=== PATIENT | female | born 1970 | race Caucasian/White ===

== ENCOUNTER → 2018-03-17 | Outpatient (CLI) | payer BC ==
[2018-03-17 13:03] LABS: WBC 7.5 k/uL (3.8-10.6)
[2018-03-17 13:04] LABS: Basophils % (A) 1 %; Eosinophils # (A) 0.3 k/uL (0-0.7); Eosinophils % (A) 4 %; HCT 38.3 % (34.0-46.0); HGB 12.5 gm/dL (11.4-16.0); Lymphocytes # (A) 2.1 k/uL (1.0-4.8); Lymphocytes % (A) 28 %; MCH 28.4 pg (25.0-35.0); MCHC 32.7 g/dL (31.0-37.0); MCV 86.7 fL (80.0-100.0); Mean Platelet Volume 6.3; Monocytes # (A) 0.4 k/uL (0-1.0); Monocytes % (A) 5 %; Neutrophils # (A) 4.5 k/uL (1.3-7.7); Neutrophils % (A) 61 %; Platelet Count 284 k/uL (150-450); RBC 4.42 m/uL (3.80-5.40); RDW 12.2 % (11.5-15.5)
[2018-03-17 13:12] LABS: Anion Gap 8 mmol/L; Blood Urea Nitrogen 17 mg/dL (7-17); Carbon Dioxide 27 mmol/L (22-30); Chloride 105 mmol/L (98-107); Glucose 90 mg/dL (74-99); Potassium 4.3 mmol/L (3.5-5.1); Sodium 140 mmol/L (137-145)
== END ==
LOC: LABPAT 12:32
PROVIDERS: ATTEND Obstetrics & Gynecology
DX: Z01.812 Encounter for preprocedural laboratory examination (principal)
CPT/HCPCS: 80048; 85025

== ENCOUNTER 2018-03-28 05:36 | Inpatient (IN) | payer BC ==
[2018-03-16 11:48] VITALS: BMI 26.9
--- NOTE | 2018-03-27 20:41 | P.HPOB ---
History of Present Illness H&P Date: 03/27/18 Chief Complaint: Menorrhagia with irregular cycle, large uterine fibroids This is a 47-year-old female 2 para 2 who presents for total abdominal hysterectomy with bilateral salpingectomy and possible bilateral oophorectomy for menorrhagia with irregular cycle and large uterine fibroids. She would only like her ovaries removed if they appear cancerous or severe endometriosis is noted. The patient complains of abnormally long and heavy menses occurring anywhere from 3-4 weeks apart and lasting 5-7 days. Her last 2 cycles each lasted almost 14 days with some clots. She also has had several months where she has missed up to 3 periods in a rope. Her pelvic ultrasound showed a uterus enlarged up to 13.6 cm x 8.4 x 7.4 cm. Endometrial stripe thickness was 4 mm. There was a large fundal fibroid measuring 6.1 x 5.8 cm another fibroid on the right side measuring 2.8 x 2.3 cm. Both ovaries appeared normal size and small simple cysts were noted on both ovaries. Based on the size of her uterus she is not a candidate for endometrial ablation. She would like definitive surgical treatment to control her heavy bleeding. Obstetrical history: . History of 2 vaginal deliveries. Gynecologic history: Onset of menses was at age 15. Menses are as described above. She has no history of sexual transmitted diseases. Her has had a vasectomy. Social history: She is . She works as a geographic information systems engineer. Review of Systems Constitutional: Reports night sweats, Denies chills, Denies fever Eyes: denies blurred vision, denies pain Ears, nose, mouth and throat: Denies headache, Denies sore throat Cardiovascular: Denies chest pain, Denies shortness of breath Respiratory: Denies cough Genitourinary: Reports menorrhagia Menstruation: Reports menses variable, Reports period heavy Musculoskeletal: Reports low back pain Integumentary: Denies pruritus, Denies rash Neurological: Denies numbness, Denies weakness Psychiatric: Denies anxiety, Denies depression Endocrine: Denies fatigue, Denies weight change Past Medical History Past Medical History: Hypertension History of Any Multi-Drug Resistant Organisms: None Reported Past Surgical History: Appendectomy Past Anesthesia/Blood Transfusion Reactions: No Reported Reaction Past Psychological History: No Psychological Hx Reported Smoking Status: Former smoker Past Alcohol Use History: Occasional Additional Past Alcohol Use History / Comment(s): Quit smoking , smoked for 2 yrs. Past Drug Use History: None Reported - Past Family History Mother Family Medical History: Diabetes Mellitus Medications and Allergies Home Medications Medication Instructions Recorded Confirmed Type amLODIPine BESYLATE [Norvasc] 5 mg PO QAM 03/16/18 03/16/18 History Allergies Allergy/AdvReac Type Severity Reaction Status Date / Time No Known Allergies Allergy Verified 03/16/18 11:48 Exam Osteopathic Statement: *. No significant issues noted on an osteopathic structural exam other than those noted in the History and Physical/Consult. HEENT: Within normal limits Heart: Regular rate and rhythm Lungs: Clear to auscultation bilaterally Abdomen: Soft, nontender Pelvic exam: Uterus is slightly enlarged, with approximately grade 2 uterine prolapse, in a mid position. No adnexal masses or tenderness are palpated. Extremities: Negative Homans Assessment and Plan (1) Menorrhagia with irregular cycle Status: Acute Code(s): N92.1 - EXCESSIVE AND FREQUENT MENSTRUATION WITH IRREGULAR CYCLE SNOMED Code(s): 876013173 (2) Uterine fibroid Status: Acute Code(s): D25.9 - LEIOMYOMA OF UTERUS, UNSPECIFIED SNOMED Code( s): 37320797 Plan: Proceed with total abdominal hysterectomy with bilateral salpingectomy and possible bilateral oophorectomy. I have discussed the risks, benefits, and alternative therapies for the above- mentioned procedure and for both sedation/anesthesia as well as necessary blood products administration, if indicated, as they pertain to this patient. The patient has indicated her understanding and acceptance of the risks and procedures discussed.
[~2018-03-28 05:36] MED LIST: DEXAMETHASONE SOD PHOSPHATE 10 MG/ML 1 ML VIAL IV ONE; MIDAZOLAM (PF) 2 MG/2 ML VIAL IV PRN; MORPHINE SULFATE 2 MG/ML SYRINGE IV PRN; ONDANSETRON 4 MG/2 ML VIAL IVP ONE; ceFAZolin IN SWFI 2 GM/20 ML SYRINGE IVP ONE
[2018-03-28] MEDS ORDERED: LACTATED RINGERS 1,000 ML IV ONE (06:13)
[2018-03-28] MEDS ORDERED: LIDOCAINE 1% 20 ML VIAL (10MG/ML) FOR IV START INTRADERMA ONE (06:14)
[2018-03-28] MEDS ORDERED: MIDAZOLAM 2 MG/2 ML VIAL IVP ONE (06:48)
[2018-03-28] MEDS ORDERED: MORPHINE SULFATE 2 MG/ML SYRINGE IVP PRN (07:08)
[2018-03-28] MEDS ORDERED: diphenhydrAMINE 50 MG/ML 1 ML VIAL IVP PRN (07:08)
[2018-03-28] MEDS ORDERED: NALOXONE 0.4 MG/ML 1 ML VIAL IV PRN (07:08)
[2018-03-28] MEDS ORDERED: KETOROLAC 30 MG/ML 1 ML VIAL ONE (07:19)
[2018-03-28] MEDS ORDERED: PROPOFOL 10 MG/ML 20 ML VIAL IV ONE (07:19)
[2018-03-28] MEDS ORDERED: NEOSTIGMINE 1 MG/ML 10 ML VIAL ONE (07:19)
[2018-03-28] MEDS ORDERED: LIDOCAINE 1% INJ 10MG/ML (20 ML MDV) ONE (07:19)
[2018-03-28] MEDS ORDERED: MIDAZOLAM 2 MG/2 ML VIAL ONE (07:19)
[2018-03-28] MEDS ORDERED: GLYCOPYRROLATE 0.2 MG/ML 2 ML VIAL ONE (07:19)
[2018-03-28] MEDS ORDERED: MORPHINE SULFATE (PF) 0.3 MG/0.3 ML SYR ONE (07:19)
[2018-03-28] MEDS ORDERED: SUCCINYLCHOLINE CHLORIDE 100 MG/5 ML SYR IV ONE (07:19)
[2018-03-28] MEDS ORDERED: ROCURONIUM BROMIDE 10 MG/ML 10 ML VIAL IV ONE (07:19)
[2018-03-28] MEDS ORDERED: fentaNYL (PF) 50 MCG/ML 2 ML AMP ONE (07:19)
[2018-03-28] MEDS: LACTATED RINGERS 1,000 ML IV SCH ×2 (08:14→15:04)
--- NOTE | 2018-03-28 08:47 | P.OP ---
Date of Procedure: 03/28/18 Preoperative Diagnosis: Menorrhagia with irregular cycle Large uterine fibroids Postoperative Diagnosis: Same Procedure(s) Performed: Total abdominal hysterectomy with bilateral salpingectomy Anesthesia: GETA, spinal (Duramorph) Surgeon: Myla Bass Financial Assistant #1: Mari Cornejo Estimated Blood Loss (ml): 150 Pathology: other (Uterus with cervix, bilateral fallopian tubes) Condition: stable Disposition: floor Indications for Procedure: This is a 47-year-old female 2 para 2 who presents for total abdominal hysterectomy with bilateral salpingectomy and possible bilateral oophorectomy for menorrhagia with irregular cycle and large uterine fibroids. She would only like her ovaries removed if they appear cancerous or severe endometriosis is noted. The patient complains of abnormally long and heavy menses occurring anywhere from 3-4 weeks apart and lasting 5-7 days. Her last 2 cycles each lasted almost 14 days with some clots. She also has had several months where she has missed up to 3 periods in a rope. Her pelvic ultrasound showed a uterus enlarged up to 13.6 cm x 8.4 x 7.4 cm. Endometrial stripe thickness was 4 mm. There was a large fundal fibroid measuring 6.1 x 5.8 cm another fibroid on the right side measuring 2.8 x 2.3 cm. Both ovaries appeared normal size and small simple cysts were noted on both ovaries. Based on the size of her uterus she is not a candidate for endometrial ablation. She would like definitive surgical treatment to control her heavy bleeding. Operative Findings: Uterus is enlarged with multiple fibroids, the largest one on the fundus that is approximately 7 cm. Both tubes and ovaries appeared normal. The left ovary did have a small simple cysts noted. Description of Procedure: The patient is taken to the operating room where she is placed in the dorsal supine position. She is prepped and draped in the normal sterile fashion including Mckeon catheter insertion and vaginal prep. A Pfannenstiel skin incision is made with a scalpel. A second knife was used to carry the incision down to the underlying layer of fascia. The fascia was nicked in the midline with a scalpel and then extended laterally bilaterally with Fitch scissors. The superior aspect of the fascial incision was grasped with Hair clamps, elevated off the underlying rectus muscle in the midline and then cut with Fitch scissors. The inferior aspect of the fascial incision was grasped with Hair clamps, elevated off the underlying rectus muscle in the midline and then cut with Fitch scissors. Next the peritoneum was identified and entered sharply with Fitch scissors. It is extended superiorly and in fairly with Metzenbaum scissors with good visualization of underlying structures. Next the [place] retractor is placed in the bladder blade was inserted. The bowels were packed with a 3 yard laparotomy sponge. Next the uterus is brought up incision and the corneal regions are grasped with Court clamps on both sides. Next the fallopian tube on the left side is brought up to the incision and the mesosalpinx is clamped with a Shakila clamp. This is cut with Fitch scissors and then sutured with 0 Vicryl suture in Shakila transfixion stitch. The remaining mesosalpinx is also clamped with a Shakila clamp, cut with Fitch scissors, and sutured with 0 Vicryl suture in Shakila transfixion stitches. Next the uterine ovarian ligament is clamped with a Shakila clamp, cut with Fitch scissors, and then sutured with 0 Vicryl suture in Shakila transfixion stitch. The same procedure is carried out on the right side. The uterine arteries are then clamped with Shakila clamp on either side. The vesicouterine peritoneum was sharply dissected away from the bladder with Metzenbaum scissors and pushed inferiorly. The uterine arteries are then cut with Fitch scissors, and sutured with 0 Vicryl suture in Shakila transfixion stitches. Next the cardinal ligaments were clamped on either side with Shakila clamp, cut with Fitch scissors , and sutured with 0 Vicryl suture in Shakila transfixion stitches. The uterosacral ligaments are clamped on either side with Shakila clamps, cut with Fitch scissors, and sutured with 0 Vicryl suture in Shakila transfixion stitches on either side. The edges of the vaginal cuff were clamped on either side with a Shakila clamp, cut with Fitch scissors, and sutured with 0 Vicryl suture in Shakila transfixion stitches and held on either side. The vaginal mucosa was then cut just below the level of the cervix and the specimen is removed from the field. The edges of the vaginal cuff were held with Hair clamps. Next the previously held corners of each side of the vaginal cuff were then whipstitched along the connective tissue on either side and brought through the corner of the cuff and tied. Next the vaginal cuff was sutured with 0 Vicryl suture in a running locked fashion. Hemostasis was noted. Copious irrigation is carried out with warm saline. Excellent hemostasis is noted. All sponges are removed from the abdomen. The peritoneum is then closed with 0 Vicryl suture in a running fashion. The muscle was then reapproximated with 0 Vicryl suture in interrupted fashion. Several interrupted stitches are placed on the muscle layer for hemostasis. The fascia layer is then closed with 0 PDS suture in a running fashion with the knots buried on either side and in the midline. Next the subcutaneous tissues closed with 2-0 Vicryl suture in a running fashion. The skin is closed with liz. All sponge and needle counts are correct and the patient is taken to recovery room in stable condition.
[2018-03-28] MEDS: HYDROmorphone 0.5 MG/0.5 ML SYRINGE IVP PRN ×2 (09:34→10:08)
[2018-03-28] MEDS ORDERED: SIMETHICONE 80 MG CHEWABLE PO PRN (10:50)
[2018-03-28] MEDS ORDERED: ONDANSETRON 4 MG/2 ML VIAL IVP PRN (10:50)
[2018-03-28] MEDS ORDERED: METOCLOPRAMIDE 5 MG/ML 2 ML VIAL IVP PRN (10:50)
[2018-03-28] MEDS ORDERED: diphenhydrAMINE 25 MG CAP PO PRN (10:50)
[2018-03-28] MEDS ORDERED: HYDROcodone/APAP 7.5-325MG 1 EACH TAB PO PRN (10:50)
[2018-03-28] MEDS ORDERED: HYDROcodone/APAP 5-325MG 1 EACH TAB PO PRN (10:50)
[2018-03-28] MEDS ORDERED: ZOLPIDEM 5 MG TAB PO PRN (10:50)
[2018-03-28] MEDS: SENNOSIDES-DOCUSATE SODIUM 1 EACH TAB PO SCH ×2 (11:41→21:54)
[2018-03-28] MEDS: amLODIPine 5 MG TAB PO SCH (11:41)
[2018-03-28] MEDS ORDERED: LACTATED RINGERS 500 ML IV SCH (13:00)
[2018-03-28 14:08] LABS: Basophils % (A) 0 %; Eosinophils # (A) 0.1 k/uL (0-0.7); Eosinophils % (A) 1 %; HCT 33.9 % (34.0-46.0); HGB 11.1 gm/dL (11.4-16.0); Lymphocytes # (A) 0.7 k/uL (1.0-4.8); Lymphocytes % (A) 5 %; MCH 29.5 pg (25.0-35.0); MCHC 32.7 g/dL (31.0-37.0); MCV 90.3 fL (80.0-100.0); Monocytes # (A) 0.3 k/uL (0-1.0); Monocytes % (A) 2 %; Neutrophils # (A) 13.1 k/uL (1.3-7.7); Neutrophils % (A) 92 %; Platelet Count 186 k/uL (150-450); RBC 3.75 m/uL (3.80-5.40); RDW 12.9 % (11.5-15.5); WBC 14.2 k/uL (3.8-10.6)
[2018-03-28] MEDS: KETOROLAC 30 MG/ML 1 ML VIAL IVP PRN ×2 (17:02→23:01)
--- NOTE | 2018-03-28 18:19 | P.PN ---
Progress Note - Text Progress Note Date: 03/28/18 I was called in regard to patient's blood pressures. Patient's blood pressures earlier today were 84/53 and 98/64. Patient is status post total abdominal hysterectomy. Patient's pulse was normal. She's had adequate urine output. Patient is sleeping apparently without complaints. Patient did have a Duramorph spinal the time of her surgery. I checked a CBC which showed a hemoglobin of 11.1. I did give the patient a bolus of 500 mL of lactated Ringer 's and this did elevate her blood pressure 105/64. Patient continues to feel well at this time it appears her low blood pressures most likely secondary to the Duramorph. Plan will be to continue routine postoperative care and patient does have a CBC ordered for tomorrow morning.
[2018-03-29] MEDS: KETOROLAC 30 MG/ML 1 ML VIAL IVP PRN (06:24)
[2018-03-29 07:35] LABS: Basophils % (A) 0 %; Eosinophils % (A) 0 %; HCT 28.4 % (34.0-46.0); Lymphocytes # (A) 1.7 k/uL (1.0-4.8); Lymphocytes % (A) 20 %; MCHC 32.9 g/dL (31.0-37.0); MCV 88.1 fL (80.0-100.0); Mean Platelet Volume 6.9; Monocytes # (A) 0.6 k/uL (0-1.0); Monocytes % (A) 7 %; Neutrophils # (A) 6.3 k/uL (1.3-7.7); Neutrophils % (A) 72 %; Platelet Count 196 k/uL (150-450); RBC 3.22 m/uL (3.80-5.40); RDW 12.8 % (11.5-15.5); WBC 8.7 k/uL (3.8-10.6)
[2018-03-29 07:37] LABS: HGB 9.3 gm/dL (11.4-16.0)
[2018-03-29] MEDS: SENNOSIDES-DOCUSATE SODIUM 1 EACH TAB PO SCH ×2 (07:50→19:58)
--- NOTE | 2018-03-29 08:40 | P.PN ---
Subjective Progress Note Date: 03/29/18 Principal diagnosis: Status post total abdominal hysterectomy with bilateral salpingectomy postoperative day #1 Patient is doing well this morning. She is ambulating without dizziness or nausea. She has urinated this morning. She is passing flatus this morning. Pain is fairly well controlled. She denies any significant vaginal bleeding. Objective - Vital Signs Vital signs: Vital Signs Temp 98.0 F 03/29/18 02:00 Pulse 76 03/29/18 02:00 Resp 18 03/29/18 06:00 BP 124/70 03/29/18 02:00 Pulse Ox 98 03/29/18 02:00 Intake & Output 03/28/18 03/29/18 03/29/18 18:59 06:59 18:59 Intake Total 1100 Output Total 850 300 Balance 250 -300 Weight 73.482 kg Intake: IV 1100 Output: Urine 700 300 Estimated Blood Loss 150 Other: Voiding Method Toilet Indwelling Catheter - Constitutional General appearance: Present: no acute distress - Gastrointestinal Gastrointestinal Comment(s): Incision is clean dry and intact with liz in place. General gastrointestinal: Present: normal bowel sounds - Musculoskeletal Musculoskeletal Comment(s): Negative Homans - Labs CBC & Chem 7: 03/29/18 05:41 Labs: Abnormal Lab Results - Last 24 Hours (Table) 03/28/18 03/29/18 Range/Units 13:47 05:41 WBC 14.2 H (3.8-10.6) k/uL RBC 3.75 L 3.22 L (3.80-5.40) m/uL Hgb 11.1 L 9.3 L D (11.4-16.0) gm/dL Hct 33.9 L 28.4 L (34.0-46.0) % Neutrophils # 13.1 H (1.3-7.7) k/uL Lymphocytes # 0.7 L (1.0-4.8) k/uL Assessment and Plan Assessment: Status post total abdominal hysterectomy with bilateral salpingectomy postoperative day #1 (1) Menorrhagia with irregular cycle Current Visit: No Status: Acute Code(s): N92.1 - EXCESSIVE AND FREQUENT MENSTRUATION WITH IRREGULAR CYCLE SNOMED Code(s): 282567181 (2) Uterine fibroid Current Visit: No Status: Acute Code(s): D25.9 - LEIOMYOMA OF UTERUS, UNSPECIFIED SNOMED Code(s): 66368453 Plan: Will switch to oral pain medications today. Will discontinue IV. Encouraged ambulation. Advance diet as tolerated.
[2018-03-29] MEDS: amLODIPine 5 MG TAB PO SCH (08:42)
--- NOTE | 2018-03-29 11:44 | P.PN ---
Progress Note - Text Anesthesia POD 1. Patient is status post Total abdominal hysterectomy with bilateral salpingectomy under general endotracheal anesthesia with intra-thecal preservative free morphine 300 g. Moderate pruritus, excellent post-op analgesia, and no headache or other complications.
[2018-03-29] MEDS: IBUPROFEN 600 MG TAB PO PRN ×2 (12:01→18:25)
[2018-03-30] MEDS: IBUPROFEN 600 MG TAB PO PRN ×2 (00:48→07:55)
[2018-03-30 01:10] VITALS: RESP 18; TEMP 97.9
[2018-03-30] MEDS: amLODIPine 5 MG TAB PO SCH (08:01)
--- NOTE | 2018-03-30 08:21 | P.DS ---
Providers Date of admission: 03/28/18 05:36 Expected date of discharge: 03/30/18 Attending physician: Myla Bass Primary care physician: Vishnu Addison - Discharge Diagnosis(es) (1) Menorrhagia with irregular cycle Current Visit: No Status: Acute (2) Uterine fibroid Current Visit: No Status: Acute Hospital Course: This is a 47-year-old female who underwent a total abdominal hysterectomy with bilateral salpingectomy on 03/28/2018. Postoperatively she has done well. She is passing flatus and bowel movement. Urinating without difficulty. No vaginal bleeding is noted. Pain is fairly well controlled with ibuprofen and occasional [place]. Vital signs are stable. Abdomen is soft with positive bowel sounds 4. Incision is clean dry and intact with liz in place. There is minimal ecchymosis noted along the right side. Extremities show negative Homans. Minda-pad is dry. Impression is status post total abdominal hysterectomy with bilateral salpingectomy postoperative day #2. Plan is to discharge home today. [place] will be removed and Steri-Strips placed prior to discharge. Routine postoperative instructions are given. She is advised follow -up in the office in approximately 10 days. She is advised to call the office if she has any further questions or concerns prior to her appointment time. She will be given a prescription for ibuprofen 600 mg every 6 hours as needed and [place] for 3 days. She has signed the opioids start talking form and denies any other narcotic use. Procedures: Total abdominal hysterectomy with bilateral salpingectomy on 03/28/2018 Patient Condition at Discharge: Stable Plan - Discharge Summary Discharge Rx Participant: No New Discharge Prescriptions: New HYDROcodone/APAP 5-325MG [[place] 5-325] 1 each PO Q4HR PRN #18 tab PRN Reason: Moderate Pain Ibuprofen [Motrin] 600 mg PO Q6HR PRN #60 tab PRN Reason: Mild Discomfort Continue amLODIPine BESYLATE [Norvasc] 5 mg PO QAM Discharge Medication List amLODIPine BESYLATE [Norvasc] 5 mg PO QAM 03/16/18 [History] HYDROcodone/APAP 5-325MG [[place] 5-325] 1 each PO Q4HR PRN #18 tab 03/30/18 [Rx] Ibuprofen [Motrin] 600 mg PO Q6HR PRN #60 tab 03/30/18 [Rx] Follow up Appointment(s)/Referral(s): Myla Bass DO [Doctor of Osteopathic Medicine] - 10 Days Activity/Diet/Wound Care/Special Instructions: Diet as tolerated. Activity as tolerated. No lifting. May shower, but no tub baths for 1 week. No intercourse for 6 weeks. Discharge Disposition: HOME SELF-CARE
[2018-03-30 08:26] VITALS: BP 118/80; PULSE 80
[2018-03-30] MEDS: SENNOSIDES-DOCUSATE SODIUM 1 EACH TAB PO SCH (09:26)
== END 2018-03-30 09:29 | disposition home or self-care (01) | DRG 743 ==
LOC: 2ORMAIN 05:36 → EDSTATUS 07:30 → 6PED 10:38
PROVIDERS: ADMIT Obstetrics & Gynecology; ATTEND Obstetrics & Gynecology
PROC: 0UT70ZZ Resection of Bilateral Fallopian Tubes, Open Approach (ICD-10-PCS; 2018-03-28)
PROC: 0UT90ZZ Resection of Uterus, Open Approach (ICD-10-PCS; principal; 2018-03-28 07:30)
DX: D25.9 Leiomyoma of uterus, unspecified (principal); I10 Essential (primary) hypertension; N92.0 Excessive and frequent menstruation with regular cycle; L29.9 Pruritus, unspecified; N92.6 Irregular menstruation, unspecified; N83.292 Other ovarian cyst, left side; N83.291 Other ovarian cyst, right side; Z87.891 Personal history of nicotine dependence; Z90.49 Acquired absence of other specified parts of digestive tract; Z83.3 Family history of diabetes mellitus
CPT/HCPCS: 81025; 85025; 86850; 86900; 86901; 88307

== ENCOUNTER → 2020-02-08 | Outpatient (CLI) | payer BC ==
--- NOTE | 2020-02-11 13:21 | MM ---
Reason for exam: screening (asymptomatic). Last mammogram was performed 4 years and 1 month ago. Physical Findings: A clinical breast exam by your physician is recommended on an annual basis and results should be correlated with mammographic findings. MG Screening Mammo w CAD Bilateral CC and MLO view(s) were taken. Prior study comparison: January 01, 2016, bilateral MG screening mammo w CAD. August 30, 2013, bilateral MG diagnostic mammo w CAD [facility]. The breast tissue is heterogeneously dense. This may lower the sensitivity of mammography. No significant changes when compared with prior studies. ASSESSMENT: Benign, BI-RAD 2 RECOMMENDATION: Routine screening mammogram of both breasts in 1 year.
== END | disposition home or self-care (01) ==
LOC: RADMAMWWP 13:33
PROVIDERS: ATTEND Family Medicine
DX: Z12.31 Encounter for screening mammogram for malignant neoplasm of breast (principal)
CPT/HCPCS: 77067

== ENCOUNTER → 2021-12-03 | Outpatient (CLI) | payer BC ==
--- NOTE | 2021-12-03 11:58 | BD ---
EXAMINATION TYPE: Axial Bone Density DATE OF EXAM: 12/03/2021 COMPARISON: NONE CLINICAL HISTORY: 51 year old Female. ICD-10 CODE: N95.1 POST MENOPAUSAL Height: 65.5 Weight: 166.6 FRAX RISK QUESTIONS: Alcohol (3 or more units per day): no Family History (Parent hip fracture): no Glucocorticoids (More than 3mos): no (Ex: prednisone, prednisolone, methylprednisolone, dexamethasone, and hydrocortisone). History of Fracture in Adulthood: no Secondary Osteoporosis: 1. Type 1 Diabetes: no 2. Hyperthyroidism: no 3. Menopause before 45: no 4. Malnutrition: no 5. Chronic liver disease: no Rheumatoid Arthritis: no Current Tobacco Use: no RISK FACTORS HISTORY OF: Surgery to Spine/Hip(right/left)/Wrist (right/left): no Family History of Osteoporosis: no Active: yes Diet low in dairy products/other sources of calcium: yes Postmenopausal woman: yes Lost more than 2 inches in height since high school: no MEDICATIONS: Additional History: EXAM MEASUREMENTS: Bone mineral densitometry was performed using the [employer] System. Bone mineral density as measured about the Lumbar spine is: ----- L1-L4(G/cm2): 1.207 T Score Values are as follows: ----- L1: 0.0 ----- L2: 0.1 ----- L3: 0.5 ----- L4: 0.1 ----- L1-L4: 0.2 Bone mineral density : baseline Bone mineral density about the R hip (g/cm2): 0.901 Bone mineral density about the L hip (g/cm2): 0.937 T Score values are as follows: -----R Neck: -1.0 -----L Neck: -0.7 -----R Total: -0.1 -----L Total: 0.1 Bone mineral density : baseline FRAX%s: The graph provided illustrates a 4.4% chance for a major osteoporotic fx and a 0.2% chance fo r the hips probability for fx in 10 years time. IMPRESSION: Normal (Values between +1 and -1 indicate normal bone mass). Consider repeating this study in 5 year s or sooner if there is some new clinical indication. NOTE: T-SCORE=SD OF THE YOUNG ADULT MEAN.
--- NOTE | 2021-12-03 15:10 | MM ---
Reason for Exam: Screening (asymptomatic). Last mammogram was performed 1 year(s) and 10 month(s) ago. Patient History: Menarche at age 12. First Full-Term at age 30. Late child-bearing (after 30). Hysterectomy at age 48. Risk Values: Tiana 5 year model risk: 1.4%. NCI Lifetime model risk: 12.0%. Prior Study Comparison: 08/30/2013 Bilateral Diagnostic Mammogram, [facility]. 01/01/2016 Bilateral Screening Mammogram, [facility] 02/08/2020 Bilateral Screening Mammogram, [facility]. Tissue Density: There are scattered fibroglandular densities. Findings: Analyzed By CAD. A focal 6 mm asymmetry in the anterior depth medial aspect left breast on CC view appears more prominent from prior studies. Overall Assessment: Incomplete: need additional imaging evaluation, BI-RAD 0 Management: Special View Mammogram of the left breast. Return for additional views left breast. Electronically signed and approved by: Umer Abrams M.D.
== END | disposition home or self-care (01) ==
LOC: RADMAMWWP 07:59
PROVIDERS: ATTEND Obstetrics & Gynecology
DX: Z12.31 Encounter for screening mammogram for malignant neoplasm of breast (principal); M85.851 Other specified disorders of bone density and structure, right thigh; Z78.0 Asymptomatic menopausal state
CPT/HCPCS: 77067; 77080

== ENCOUNTER → 2021-12-08 | Outpatient (CLI) | payer BC ==
--- NOTE | 2021-12-08 09:30 | USB ---
Patient History: Menarche at age 12. First Full-Term at age 30. Late child-bearing (after 30). Hysterectomy at age 48. Risk Values: Tiana 5 year model risk: 1.4%. NCI Lifetime model risk: 12.0%. Prior Study Comparison: 01/01/2016 Bilateral Screening Mammogram, [facility]. 02/08/2020 Bilateral Screening Mammogram, [facility]. 12/03/2021 Bilateral MG screening mammo w CAD, [facility]. Findings: The upper inner quadrant of the left breast, the axilla of the left breast and the retroareolar of the left breast were scanned. . Left breast 11:00 1 cm from nipple is a suspected complicated cyst with some posterior acoustic enhancement and thin septation. No suspicious masses or cystic structures identified. Overall Assessment: Benign, BI-RAD 2 Management: Screening Mammogram of both breasts in 1 year. A clinical breast exam by your physician is recommended on an annual basis and results should be correlated with mammographic findings. Electronically signed and approved by: Gabriele Carrera DO
--- NOTE | 2021-12-09 09:02 | MM ---
Reason for Exam: Additional evaluation requested from prior study. Last screening mammogram was performed less than 1 month ago. Patient History: Menarche at age 12. First Full-Term at age 30. Late child-bearing (after 30). Hysterectomy at age 48. Risk Values: Tiana 5 year model risk: 1.4%. NCI Lifetime model risk: 12.0%. Prior Study Comparison: 01/01/2016 Bilateral Screening Mammogram, [facility]. 02/08/2020 Bilateral Screening Mammogram, [facility]. 12/03/2021 Bilateral MG screening mammo w CAD, [facility]. Tissue Density: Left: There are scattered fibroglandular densities. Findings: Analyzed By CAD. Area of concern in the left breast 1:00 1 cm from nipple persists. Ultrasound recommended. Overall Assessment: Incomplete: need additional imaging evaluation, BI-RAD 0 Management: Diagnostic Breast Ultrasound of the left breast. A clinical breast exam by your physician is recommended on an annual basis and results should be correlated with mammographic findings. This exam should not preclude additional follow-up of suspicious palpable abnormalities. Results were given to the patient verbally at the time of exam. Electronically signed and approved by: Gabriele Carrera DO
== END | disposition home or self-care (01) ==
LOC: RADMAMWWP 08:15
PROVIDERS: ATTEND Obstetrics & Gynecology
DX: R92.8 Other abnormal and inconclusive findings on diagnostic imaging of breast (principal); N60.02 Solitary cyst of left breast
CPT/HCPCS: 77061; 77065

== ENCOUNTER → 2022-08-02 | Outpatient (CLI) | payer BC ==
--- NOTE | 2022-08-02 16:59 | MR ---
EXAMINATION TYPE: MR lumbar spine wo con DATE OF EXAM: 08/02/2022 3:28 PM COMPARISON: None. CLINICAL INDICATION:Female, 52 years old with history of R10.12; Low back pain, sacrococcygeal disord ers TECHNIQUE: Multi planar, multi sequence imaging was performed utilizing: T1-weighted, T2-weighted, a nd turbo inversion recovery imaging of the lumbar spine. IV Contrast: None. FINDINGS: Alignment: The lumbar vertebral bodies have preserved heights and alignment. Cord: The conus medullaris and the distal spinal cord appear unremarkable with regards to their signa l intensity and morphology. There is a transitional vertebrae at L5. Bones/Discs: High T1/high T2 signal L1 vertebral body hemangioma. Reactive bony edema on inversion re covery signal involving the adjoining endplates of L4 and L5. Multilevel disc degenerative is noted a nd most pronounced at the L4-L5 with height loss, Modic endplate osteophyte formation. Additional sca ttered osteophyte formation and Modic endplate changes are seen throughout this lumbar spine. Multile lauren disc desiccation is present. T12-L1: No evidence of significant spinal canal stenosis or neural foraminal stenosis. L1-L2: No evidence of significant spinal canal stenosis or neural foraminal stenosis. L2-L3: No evidence of significant spinal canal stenosis or neural foraminal stenosis. L3-L4: No evidence of significant spinal canal stenosis or neural foraminal stenosis. L4-L5: No evidence of significant spinal canal stenosis or neural foraminal stenosis. L5-S1: The disc is rounded posterior morphology without significant spinal canal stenosis. Facet join t arthropathy with mild neural foraminal stenosis. No significant spinal canal or neural foraminal stenosis in the remainder of the visualized levels. Other findings: None. IMPRESSION: 1. No definitive evidence of disc herniation or significant spinal canal stenosis. 2. Multilevel disc degeneration with associated osteoarthritic changes worse at L4-L5 with reactive bony edema and disc space height loss.
== END | disposition home or self-care (01) ==
LOC: RADMRIMAIN 14:51
PROVIDERS: ATTEND Nurse Practitioner Family
DX: M53.3 Sacrococcygeal disorders, not elsewhere classified (principal); M51.36 Other intervertebral disc degeneration, lumbar region; M47.816 Spondylosis without myelopathy or radiculopathy, lumbar region
CPT/HCPCS: 72148

== ENCOUNTER → 2023-09-20 | Outpatient (CLI) | payer BC ==
--- NOTE | 2023-09-24 16:54 | MM ---
Reason for Exam: Screening (asymptomatic). Last mammogram was performed 1 year(s) and 10 month(s) ago. Patient History: Menarche at age 12. First Full-Term at age 30. Late child-bearing (after 30). Hysterectomy at age 48. Patient has history of breast feeding. Risk Values: Tiana 5 year model risk: 1.5%. NCI Lifetime model risk: 11.6%. Prior Study Comparison: 02/08/2020 Bilateral Screening Mammogram, [facility]. 12/03/2021 Bilateral MG screening mammo w CAD, [facility]. 12/08/2021 Left MG 3D work up w/cad LT, [facility]. Tissue Density: There are scattered areas of fibroglandular density. Findings: Analyzed By CAD. There is no suspicious group of microcalcifications or new suspicious mass in either breast. Overall Assessment: Negative, BI-RAD 1 Management: Screening Mammogram of both breasts in 1 year. . Patient should continue monthly self-breast exams. A clinical breast exam by your physician is recommended on an annual basis. This exam should not preclude additional follow-up of suspicious palpable abnormalities. Note on Tiana scores and lifetime risk: 1. A Tiana score greater than 3% is considered moderate risk. If this is the case, consider specialist referral to assess eligibility for a risk reducing agent. 2. If overall lifetime risk for the development of breast cancer is 20% or higher, the patient may qualify for future screening with alternating mammogram and breast MRI. Electronically signed and approved by: Dmitri Bobo M.D. Radiologist
== END | disposition home or self-care (01) ==
LOC: RADMAMWWP 09:02
PROVIDERS: ATTEND Nurse Practitioner Family
DX: Z12.31 Encounter for screening mammogram for malignant neoplasm of breast (principal)
CPT/HCPCS: 77063; 77067